=== PATIENT | male | born 1980 | race Hispanic/Latino ===

== ENCOUNTER 2023-10-07 05:14 | Inpatient (IN) | payer BC ==
[2023-10-07] MEDS ORDERED: cefTRIAXone (ROCEPHIN) 2 GM VIAL ONE (06:40)
[2023-10-07] MEDS ORDERED: Ketorolac Tromethamine 30 MG (1 mL) VIAL ONE (06:40)
[2023-10-07 07:16] LABS: Hematocrit 45.8 % (38.8-50.0); Hemoglobin 16.4 g/dL (13.5-17.5); Mean Corpuscular HGB CONC 35.8 g/dL (32.0-36.0); Mean Corpuscular Hemoglobin 31.4 pg (27.0-33.0); Mean Corpuscular Volume 87.7 fL (81.2-95.1); Mean Platelet Volume 9.7 fL (7.4-10.4); Platelet Count 184 10x3/uL (150-450); RBC Distribution Width 12.1 % (11.5-14.5); Red Blood Cell (RBC) Count 5.22 10x6/uL (4.32-5.72); White Blood Cell (WBC) Count 11.3 10x3/uL (3.5-10.5)
[2023-10-07 07:26] LABS: ALT (SGPT) 68 U/L (8-55); AST (SGOT) 51 U/L (5-34); Albumin 4.2 g/dL (3.5-5.0); Alkaline Phosphatase 77 U/L (40-110); Anion Gap 17 mmol/L (10-20); BUN (Urea Nitrogen) 14 mg/dL (8.9-20.6); Bilirubin, Total 1.4 mg/dL (0.2-1.2); Calc. Creatinine Clearance 0 mL/min (70-130); Calcium 9.8 mg/dL (7.8-10.44); Carbon Dioxide 20 mmol/L (22-29); Chloride 104 mmol/L (98-107); Estimated GFR 87; Globulin 2.3 g/dL (2.4-3.5); Glucose 107 mg/dL (70-105); Potassium 3.5 mmol/L (3.5-5.1); Protein, Total 6.5 g/dL (6.0-8.3); Sodium 137 mmol/L (136-145)
[2023-10-07 07:27] LABS: MDiff Complete? YES
[2023-10-07 07:56] LABS: Platelet Adequacy Comment Appears Adequate; RBC Morph Comment Within Normal Limits
[2023-10-07 07:59] LABS: Band 14 % (5-11); Eosinophils 1 % (0-10); Lymphocytes 3 % (21-51); Monocytes 3 % (0-10); Neutrophil 79 % (42-75)
[2023-10-07 09:02] LABS: Hematocrit 41.1 % (38.8-50.0); Hemoglobin 14.7 g/dL (13.5-17.5); Mean Corpuscular HGB CONC 35.8 g/dL (32.0-36.0); Mean Corpuscular Hemoglobin 31.5 pg (27.0-33.0); Mean Corpuscular Volume 88.2 fL (81.2-95.1); Mean Platelet Volume 9.9 fL (7.4-10.4); Platelet Count 165 10x3/uL (150-450); RBC Distribution Width 12.1 % (11.5-14.5); Red Blood Cell (RBC) Count 4.66 10x6/uL (4.32-5.72)
[2023-10-07 09:03] LABS: MDiff Complete? YES
[2023-10-07 09:27] LABS: Band 19 % (5-11); Lymphocytes 4 % (21-51); Monocytes 8 % (0-10); Neutrophil 68 % (42-75); Reactive Lymphocytes 1 % (0-10)
[2023-10-07 09:28] LABS: Platelet Adequacy Comment Appears Adequate; RBC Morph Comment Within Normal Limits
[2023-10-07] MEDS ORDERED: Calcium Carbonate 500 MG ChewTAB PO PRN (10:20)
[2023-10-07] MEDS: Clindamycin/D5W 900 MG in Premix 1 BAG IVPB SCH ×2 (10:30→15:08)
[2023-10-07 10:33] VITALS: BMI 26.6
[2023-10-07] MEDS: HYDROcodone/Acetaminophen 5/325 mg Tablet PO PRN (10:58)
[2023-10-07] MEDS: Enoxaparin 40 MG (0.4 mL) SYRINGE SC SCH (10:59)
[2023-10-07] MEDS: Sodium Chloride 0.9% 1,000 ML IV SCH (11:00)
[2023-10-07] MEDS: VANCOMYCIN 2 GRAM/400 ML BAG 2 GM in Premix 1 BAG IVPB SCH (11:00)
[2023-10-07] MEDS: Acetaminophen 325 MG TAB PO PRN (17:22)
[2023-10-07] MEDS: Cefepime 2 GM in Sodium Chloride 0.9% 100 ML IVPB SCH (20:37)
[2023-10-07] MEDS ORDERED: Vancomycin 1 GM in Sodium Chloride 0.9% 250 ML 300 ML IVPB SCH (21:00)
[2023-10-07] MEDS: VANCOMYCIN 1.25 GM/250 ML BAG 1.25 GM in Premix 1 BAG IVPB SCH (21:36)
[2023-10-07] MEDS: Ondansetron PF 4 MG/2 ML Vial IVP PRN (23:23)
[2023-10-08 04:00] LABS: ALT (SGPT) 96 U/L (8-55); AST (SGOT) 58 U/L (5-34); Albumin 2.9 g/dL (3.5-5.0); Alkaline Phosphatase 65 U/L (40-110); Anion Gap 11 mmol/L (10-20); BUN (Urea Nitrogen) 13 mg/dL (8.9-20.6); Bilirubin, Total 1.7 mg/dL (0.2-1.2); Calc. Creatinine Clearance 112 mL/min (70-130); Calcium 8.7 mg/dL (7.8-10.44); Carbon Dioxide 20 mmol/L (22-29); Chloride 106 mmol/L (98-107); Estimated GFR 98; Globulin 2.3 g/dL (2.4-3.5); Glucose 127 mg/dL (70-105); Hematocrit 40.4 % (38.8-50.0); Hemoglobin 14.3 g/dL (13.5-17.5); MDiff Complete? YES; Mean Corpuscular HGB CONC 35.4 g/dL (32.0-36.0); Mean Corpuscular Volume 87.4 fL (81.2-95.1); Mean Platelet Volume 9.9 fL (7.4-10.4); Platelet Count 156 10x3/uL (150-450); Potassium 3.6 mmol/L (3.5-5.1); Protein, Total 5.2 g/dL (6.0-8.3); RBC Distribution Width 12.4 % (11.5-14.5); Red Blood Cell (RBC) Count 4.62 10x6/uL (4.32-5.72); Sodium 133 mmol/L (136-145); White Blood Cell (WBC) Count 8.4 10x3/uL (3.5-10.5)
[2023-10-08 04:04] LABS: Band 13 % (5-11); Dohle Bodies SLIGHT; Lymphocytes 4 % (21-51); Metamyelocyte 1 % (0-0); Monocytes 1 % (0-10); Neutrophil 81 % (42-75)
[2023-10-08 04:05] LABS: Vacuoles SLIGHT
[2023-10-08 04:07] LABS: RBC Morph Comment Within Normal Limits
[2023-10-08 04:08] LABS: Vancomycin, Random 18.2 ug/mL (See Comment)
[2023-10-08] MEDS: Enoxaparin 40 MG (0.4 mL) SYRINGE SC SCH (08:45)
[2023-10-08] MEDS: Finasteride 5 MG TAB PO SCH (08:48)
[2023-10-09 03:53] LABS: Hemoglobin 14.1 g/dL (13.5-17.5); Mean Corpuscular HGB CONC 35.3 g/dL (32.0-36.0); Mean Corpuscular Hemoglobin 31.2 pg (27.0-33.0); Mean Corpuscular Volume 88.5 fL (81.2-95.1); Mean Platelet Volume 9.9 fL (7.4-10.4); Platelet Count 164 10x3/uL (150-450); RBC Distribution Width 12.6 % (11.5-14.5); Red Blood Cell (RBC) Count 4.52 10x6/uL (4.32-5.72)
[2023-10-09 04:06] LABS: ALT (SGPT) 88 U/L (8-55); AST (SGOT) 37 U/L (5-34); Albumin 2.5 g/dL (3.5-5.0); Alkaline Phosphatase 74 U/L (40-110); Anion Gap 13 mmol/L (10-20); BUN (Urea Nitrogen) 13 mg/dL (8.9-20.6); Bilirubin, Total 1.2 mg/dL (0.2-1.2); Calc. Creatinine Clearance 119 mL/min (70-130); Calcium 9.4 mg/dL (7.8-10.44); Carbon Dioxide 21 mmol/L (22-29); Cardiac Risk 7.1 (Less than 4.5); Chloride 105 mmol/L (98-107); Cholesterol 127 mg/dl (< 200 Desired); Estimated GFR 105; Globulin 2.8 g/dL (2.4-3.5); Glucose 115 mg/dL (70-105); HDL Cholesterol 18 mg/dL (>60 Neg Risk); LDL Cholesterol, Calculated 56 mg/dL; Potassium 3.8 mmol/L (3.5-5.1); Protein, Total 5.3 g/dL (6.0-8.3); Sodium 135 mmol/L (136-145); Triglycerides 263 mg/dL (Less than 150)
[2023-10-09 04:09] LABS: MDiff Complete? YES
[2023-10-09 04:12] LABS: Band 1 % (5-11); Eosinophils 1 % (0-10); Lymphocytes 1 % (21-51); Monocytes 4 % (0-10); Neutrophil 93 % (42-75)
[2023-10-09 04:14] LABS: Dohle Bodies SLIGHT; Giant Platelets SLIGHT HPF (0-5); Platelet Adequacy Comment Appears Adequate; Toxic Granulation SLIGHT
[2023-10-09 04:16] LABS: RBC Morph Comment Within Normal Limits
[2023-10-09 10:38] LABS: Bilirubin Neg (Negative); Blood, Urine 25 (Negative); Clarity Clear (Clear); Glucose, Urine (Dipstick) 50 mg/dL (Negative); Ketone, Urine 5 mg/dL (Negative); Leukocyte Negative (Negative); Nitrite Negative (Negative); Protein, Urine (Dipstick) 100 mg/dl (Neg-Trace); Urobilinogen Normal mg/dL (Less than 2)
[2023-10-09 10:56] LABS: Bacteria/HPF None Seen HPF (None Seen); RBC/HPF 0-3 HPF (0-3); Squamous Epithelial 0-3 HPF (0-3); WBC/HPF 0-3 HPF (0-3)
[2023-10-09] MEDS: Ondansetron ODT 4 MG TAB PO PRN (11:06)
[2023-10-09] MEDS: Ketorolac Tromethamine 30 MG (1 mL) VIAL IVP PRN (12:31)
[2023-10-09] MEDS: Sodium Chloride 0.9% 1,000 ML IV SCH (15:56)
[2023-10-09] MEDS: VANCOMYCIN 1.25 GM/250 ML BAG 1.25 GM in Premix 1 BAG IVPB SCH (16:01)
[2023-10-09] MEDS: Famotidine 20 MG TAB PO SCH (19:48)
[2023-10-09] MEDS: CEFAZOLIN 2 GM in Sodium Chloride 0.9% 100 ML IVPB SCH (21:09)
[2023-10-09] MEDS ORDERED: VANCOMYCIN 1.25 GM/250 ML BAG 1.25 GM in Premix 1 BAG IVPB SCH (23:59)
[2023-10-10 03:59] LABS: ALT (SGPT) 79 U/L (8-55); AST (SGOT) 30 U/L (5-34); Albumin 2.2 g/dL (3.5-5.0); Alkaline Phosphatase 108 U/L (40-110); Anion Gap 12 mmol/L (10-20); BUN (Urea Nitrogen) 20 mg/dL (8.9-20.6); Bilirubin, Total 1.2 mg/dL (0.2-1.2); Calc. Creatinine Clearance 129 mL/min (70-130); Calcium 9.2 mg/dL (7.8-10.44); Carbon Dioxide 22 mmol/L (22-29); Chloride 103 mmol/L (98-107); Estimated GFR 111; Globulin 3.1 g/dL (2.4-3.5); Glucose 111 mg/dL (70-105); Potassium 3.5 mmol/L (3.5-5.1); Protein, Total 5.3 g/dL (6.0-8.3); Sodium 133 mmol/L (136-145)
[2023-10-10 04:03] LABS: Hematocrit 38.5 % (38.8-50.0); Hemoglobin 13.4 g/dL (13.5-17.5); MDiff Complete? YES; Mean Corpuscular HGB CONC 34.8 g/dL (32.0-36.0); Mean Corpuscular Hemoglobin 30.6 pg (27.0-33.0); Mean Corpuscular Volume 87.9 fL (81.2-95.1); Mean Platelet Volume 10.4 fL (7.4-10.4); Platelet Count 187 10x3/uL (150-450); RBC Distribution Width 12.7 % (11.5-14.5); Red Blood Cell (RBC) Count 4.38 10x6/uL (4.32-5.72); White Blood Cell (WBC) Count 12.9 10x3/uL (3.5-10.5)
[2023-10-10 04:22] LABS: Platelet Adequacy Comment Appears Adequate; RBC Morph Comment Within Normal Limits
[2023-10-10 04:25] LABS: Band 12 % (5-11); Eosinophils 1 % (0-10); Lymphocytes 6 % (21-51); Monocytes 7 % (0-10); Neutrophil 74 % (42-75)
[2023-10-10] MEDS: Saccharomyces boulardii 250 MG CAP PO SCH (08:51)
[2023-10-11 03:51] LABS: Hematocrit 37.2 % (38.8-50.0); Hemoglobin 13.2 g/dL (13.5-17.5); MDiff Complete? YES; Mean Corpuscular HGB CONC 35.5 g/dL (32.0-36.0); Mean Corpuscular Hemoglobin 31.4 pg (27.0-33.0); Mean Corpuscular Volume 88.4 fL (81.2-95.1); Mean Platelet Volume 10.3 fL (7.4-10.4); Platelet Count 208 10x3/uL (150-450); RBC Distribution Width 12.9 % (11.5-14.5); Red Blood Cell (RBC) Count 4.21 10x6/uL (4.32-5.72); White Blood Cell (WBC) Count 10.5 10x3/uL (3.5-10.5)
[2023-10-11 04:08] LABS: ALT (SGPT) 68 U/L (8-55); AST (SGOT) 41 U/L (5-34); Alkaline Phosphatase 143 U/L (40-110); Anion Gap 12 mmol/L (10-20); BUN (Urea Nitrogen) 16 mg/dL (8.9-20.6); Bilirubin, Total 0.9 mg/dL (0.2-1.2); Calc. Creatinine Clearance 139 mL/min (70-130); Calcium 8.7 mg/dL (7.8-10.44); Carbon Dioxide 24 mmol/L (22-29); Chloride 104 mmol/L (98-107); Estimated GFR 113; Globulin 2.9 g/dL (2.4-3.5); Glucose 95 mg/dL (70-105); Potassium 3.3 mmol/L (3.5-5.1); Protein, Total 4.9 g/dL (6.0-8.3); Sodium 137 mmol/L (136-145)
[2023-10-11 04:09] LABS: Band 14 % (5-11); Eosinophils 2 % (0-10); Lymphocytes 17 % (21-51); Monocytes 9 % (0-10); Neutrophil 58 % (42-75)
[2023-10-11 04:10] LABS: Platelet Adequacy Comment Appears Adequate; RBC Morph Comment Within Normal Limits
[2023-10-11] MEDS ORDERED: Acetaminophen 325 MG TAB PO PRN (08:31)
[2023-10-11] MEDS: Albumin 25% 25 GM (100 mL) BOT IVPB SCH (11:19)
[2023-10-11] MEDS: Morphine 2 MG/ML VIAL SLOW IVP PRN (14:05)
[2023-10-12 05:00] LABS: Hematocrit 33.5 % (38.8-50.0); Hemoglobin 11.7 g/dL (13.5-17.5); Mean Corpuscular HGB CONC 34.9 g/dL (32.0-36.0); Mean Corpuscular Hemoglobin 30.6 pg (27.0-33.0); Mean Corpuscular Volume 87.7 fL (81.2-95.1); Mean Platelet Volume 9.5 fL (7.4-10.4); Platelet Count 225 10x3/uL (150-450); RBC Distribution Width 13.4 % (11.5-14.5); Red Blood Cell (RBC) Count 3.82 10x6/uL (4.32-5.72); White Blood Cell (WBC) Count 9.5 10x3/uL (3.5-10.5)
[2023-10-12 05:01] LABS: MDiff Complete? YES
[2023-10-12 05:10] LABS: Platelet Adequacy Comment Appears Adequate; RBC Morph Comment Within Normal Limits
[2023-10-12 05:13] LABS: ALT (SGPT) 71 U/L (8-55); AST (SGOT) 59 U/L (5-34); Albumin 2.9 g/dL (3.5-5.0); Alkaline Phosphatase 201 U/L (40-110); Anion Gap 12 mmol/L (10-20); BUN (Urea Nitrogen) 12 mg/dL (8.9-20.6); Bilirubin, Total 1.2 mg/dL (0.2-1.2); Calc. Creatinine Clearance 142 mL/min (70-130); Calcium 9.1 mg/dL (7.8-10.44); Carbon Dioxide 25 mmol/L (22-29); Chloride 103 mmol/L (98-107); Estimated GFR 114; Globulin 2.4 g/dL (2.4-3.5); Glucose 93 mg/dL (70-105); Potassium 3.2 mmol/L (3.5-5.1); Protein, Total 5.3 g/dL (6.0-8.3); Sodium 137 mmol/L (136-145)
[2023-10-12 05:18] LABS: Band 14 % (5-11); Eosinophils 2 % (0-10); Lymphocytes 21 % (21-51); Monocytes 6 % (0-10); Neutrophil 55 % (42-75); Reactive Lymphocytes 2 % (0-10)
[2023-10-12] MEDS: Potassium Chloride 20 MEQ TAB PO SCH (09:21)
[2023-10-12 11:17] LABS: Phosphorus 2.9 mg/dL (2.3-4.7)
[2023-10-13 04:32] LABS: Hematocrit 34.2 % (38.8-50.0); Mean Corpuscular HGB CONC 35.1 g/dL (32.0-36.0); Mean Corpuscular Hemoglobin 30.9 pg (27.0-33.0); Mean Corpuscular Volume 88.1 fL (81.2-95.1); Mean Platelet Volume 9.6 fL (7.4-10.4); Platelet Count 235 10x3/uL (150-450); RBC Distribution Width 13.4 % (11.5-14.5); Red Blood Cell (RBC) Count 3.88 10x6/uL (4.32-5.72); White Blood Cell (WBC) Count 9.1 10x3/uL (3.5-10.5)
[2023-10-13 04:33] LABS: MDiff Complete? YES
[2023-10-13 04:35] LABS: ALT (SGPT) 117 U/L (8-55); AST (SGOT) 96 U/L (5-34); Albumin 2.7 g/dL (3.5-5.0); Alkaline Phosphatase 292 U/L (40-110); Anion Gap 11 mmol/L (10-20); BUN (Urea Nitrogen) 9 mg/dL (8.9-20.6); Bilirubin, Total 1.2 mg/dL (0.2-1.2); Calc. Creatinine Clearance 146 mL/min (70-130); Carbon Dioxide 27 mmol/L (22-29); Chloride 104 mmol/L (98-107); Estimated GFR 115; Globulin 2.7 g/dL (2.4-3.5); Glucose 98 mg/dL (70-105); Potassium 3.3 mmol/L (3.5-5.1); Protein, Total 5.4 g/dL (6.0-8.3); Sodium 139 mmol/L (136-145)
[2023-10-13 04:44] LABS: Platelet Adequacy Comment Appears Adequate; RBC Morph Comment Within Normal Limits
[2023-10-13 04:48] LABS: Band 15 % (5-11); Eosinophils 3 % (0-10); Lymphocytes 21 % (21-51); Monocytes 7 % (0-10); Neutrophil 54 % (42-75)
[2023-10-13] MEDS: Potassium Chloride 20 MEQ TAB PO SCH (08:34)
[2023-10-13] MEDS: Senokot S 8.6-50 MG TAB PO PRN (14:43)
[2023-10-14 03:47] LABS: MDiff Complete? YES
[2023-10-14 03:48] LABS: Hematocrit 35.1 % (38.8-50.0); Mean Corpuscular HGB CONC 34.2 g/dL (32.0-36.0); Mean Corpuscular Hemoglobin 30.5 pg (27.0-33.0); Mean Corpuscular Volume 89.1 fL (81.2-95.1); Mean Platelet Volume 9.6 fL (7.4-10.4); Platelet Count 274 10x3/uL (150-450); RBC Distribution Width 13.4 % (11.5-14.5); Red Blood Cell (RBC) Count 3.94 10x6/uL (4.32-5.72); White Blood Cell (WBC) Count 8.4 10x3/uL (3.5-10.5)
[2023-10-14 03:51] LABS: ALT (SGPT) 139 U/L (8-55); AST (SGOT) 125 U/L (5-34); Albumin 2.5 g/dL (3.5-5.0); Alkaline Phosphatase 367 U/L (40-110); Anion Gap 11 mmol/L (10-20); BUN (Urea Nitrogen) 13 mg/dL (8.9-20.6); Bilirubin, Total 0.9 mg/dL (0.2-1.2); Calc. Creatinine Clearance 144 mL/min (70-130); Calcium 8.9 mg/dL (7.8-10.44); Carbon Dioxide 27 mmol/L (22-29); Chloride 104 mmol/L (98-107); Estimated GFR 115; Globulin 2.9 g/dL (2.4-3.5); Glucose 98 mg/dL (70-105); Potassium 3.5 mmol/L (3.5-5.1); Protein, Total 5.4 g/dL (6.0-8.3); Sodium 138 mmol/L (136-145)
[2023-10-14 05:44] LABS: Band 8 % (5-11); Eosinophils 4 % (0-10); Lymphocytes 15 % (21-51); Metamyelocyte 3 % (0-0); Monocytes 2 % (0-10); Neutrophil 68 % (42-75)
[2023-10-14 05:46] LABS: Hypochromia SLIGHT = 6-15 cells (100X) (0-5/hpf); Microcytosis SLIGHT = 6-15 cells (100X) (0-5/hpf); Platelet Adequacy Comment Appears Adequate
[2023-10-14] MEDS: Albumin 25% 25 GM (100 mL) BOT IVPB SCH (09:31)
[2023-10-14] MEDS: Penicillin G Potassium 4 MILL.UNITS, Admixture Fee 1 EACH in Sodium Chloride 0.9% 100 ML IVPB SCH (19:43)
[2023-10-14] MEDS: Terbinafine 1% Cream 15 GM Tube TOP SCH (23:03)
[2023-10-15 03:51] LABS: Hematocrit 35.7 % (38.8-50.0); Hemoglobin 12.1 g/dL (13.5-17.5); MDiff Complete? YES; Mean Corpuscular HGB CONC 33.9 g/dL (32.0-36.0); Mean Corpuscular Hemoglobin 30.5 pg (27.0-33.0); Mean Corpuscular Volume 89.9 fL (81.2-95.1); Mean Platelet Volume 9.7 fL (7.4-10.4); Platelet Count 294 10x3/uL (150-450); RBC Distribution Width 13.4 % (11.5-14.5); Red Blood Cell (RBC) Count 3.97 10x6/uL (4.32-5.72); White Blood Cell (WBC) Count 9.5 10x3/uL (3.5-10.5)
[2023-10-15 04:09] LABS: ALT (SGPT) 93 U/L (8-55); AST (SGOT) 64 U/L (5-34); Albumin 3.3 g/dL (3.5-5.0); Alkaline Phosphatase 327 U/L (40-110); Anion Gap 11 mmol/L (10-20); BUN (Urea Nitrogen) 14 mg/dL (8.9-20.6); Bilirubin, Total 1.1 mg/dL (0.2-1.2); Calc. Creatinine Clearance 132 mL/min (70-130); Calcium 9.4 mg/dL (7.8-10.44); Carbon Dioxide 26 mmol/L (22-29); Chloride 104 mmol/L (98-107); Estimated GFR 112; Globulin 2.7 g/dL (2.4-3.5); Glucose 90 mg/dL (70-105); Potassium 3.7 mmol/L (3.5-5.1); Sodium 137 mmol/L (136-145)
[2023-10-15 04:32] LABS: HIV (1/2) Antibody/Antigen Non-Reactive (NonReactive); HIV 1/2 INDEX 0.05 S/CO (<1.00)
[2023-10-15 05:27] LABS: Band 4 % (5-11); Lymphocytes 11 % (21-51); Metamyelocyte 2 % (0-0); Microcytosis SLIGHT = 6-15 cells (100X) (0-5/hpf); Monocytes 2 % (0-10); Neutrophil 79 % (42-75); Platelet Adequacy Comment Appears Adequate; Reactive Lymphocytes 2 % (0-10)
[2023-10-15] MEDS: Furosemide 20 MG (2 mL) VIAL SLOW IVP SCH (06:13)
[2023-10-15 08:19] VITALS: BMI 26.6
[2023-10-15] MEDS ORDERED: Albumin 25% 25 GM (100 mL) BOT IVPB SCH (09:00)
[2023-10-15 13:17] LABS: CRP,High Sensitivity (Inhouse) 4.32 mg/dL (< or = 0.5)
[2023-10-16 04:13] LABS: Anion Gap 13 mmol/L (10-20); BUN (Urea Nitrogen) 13 mg/dL (8.9-20.6); Calc. Creatinine Clearance 137 mL/min (70-130); Calcium 9.9 mg/dL (7.8-10.44); Carbon Dioxide 25 mmol/L (22-29); Chloride 103 mmol/L (98-107); Estimated GFR 113; Glucose 101 mg/dL (70-105); Sodium 137 mmol/L (136-145)
[2023-10-16 09:55] LABS: PTT 27.2 sec (22.0-33.0)
[2023-10-16 10:24] LABS: ALT (SGPT) 72 U/L (8-55); AST (SGOT) 36 U/L (5-34); Albumin 3.7 g/dL (3.5-5.0); Alkaline Phosphatase 330 U/L (40-110); Bilirubin, Direct 0.4 mg/dL (0.1-0.3); Bilirubin, Total 0.9 mg/dL (0.2-1.2); Protein, Total 6.9 g/dL (6.0-8.3)
[2023-10-16] MEDS: Doxycycline 100 MG in Sodium Chloride 0.9% 100 ML IVPB SCH (12:03)
[2023-10-16] MEDS ORDERED: Lidocaine 1% PF 10 ML AMP FS SCH (13:30)
[2023-10-16 13:44] LABS: Hep C IgG Ab NONREACTIVE S/CO (NonReactive); Hep C Index 0.12 S/CO (0-0.79)
[2023-10-16 14:52] LABS: Bilirubin Neg (Negative); Blood, Urine Negative (Negative); Clarity Clear (Clear); Glucose, Urine (Dipstick) Normal (Negative); Ketone, Urine Negative (Negative); Leukocyte Negative (Negative); Nitrite Negative (Negative); Protein, Urine (Dipstick) Negative (Neg-Trace)
[2023-10-16 15:25] LABS: Bacteria/HPF None Seen HPF (None Seen); RBC/HPF None Seen HPF (0-3); Squamous Epithelial None Seen HPF (0-3); WBC/HPF None Seen HPF (0-3)
[2023-10-16] MEDS ORDERED: Doxycycline 100 MG in Sodium Chloride 0.9% 100 ML IVPB SCH (21:00)
[2023-10-17 05:08] LABS: #Basophils 0.08 10x3/uL (0.0-0.2); #Eosinphils 0.13 10x3/uL (0.0-0.5); #Monocytes 0.66 10x3/uL (0.0-1.1); #Neutrophils 8.02 10x3/uL (1.5-8.4); %Basophils 0.7 % (0.0-2.0); %Eosinophils 1.2 % (0.0-6.0); %Lymphocytes 15.6 % (18.0-47.0); %Neutrophils 72.8 % (40.0-75.0); Hematocrit 39.9 % (38.8-50.0); Hemoglobin 13.7 g/dL (13.5-17.5); Mean Corpuscular HGB CONC 34.3 g/dL (32.0-36.0); Mean Corpuscular Hemoglobin 30.5 pg (27.0-33.0); Mean Corpuscular Volume 88.9 fL (81.2-95.1); Mean Platelet Volume 9.5 fL (7.4-10.4); Platelet Count 397 10x3/uL (150-450); RBC Distribution Width 12.9 % (11.5-14.5); Red Blood Cell (RBC) Count 4.49 10x6/uL (4.32-5.72)
[2023-10-17 05:17] LABS: ALT (SGPT) 72 U/L (8-55); AST (SGOT) 36 U/L (5-34); Albumin 3.7 g/dL (3.5-5.0); Alkaline Phosphatase 333 U/L (40-110); Anion Gap 13 mmol/L (10-20); BUN (Urea Nitrogen) 15 mg/dL (8.9-20.6); Calc. Creatinine Clearance 128 mL/min (70-130); Calcium 10.4 mg/dL (7.8-10.44); Carbon Dioxide 24 mmol/L (22-29); Chloride 102 mmol/L (98-107); Estimated GFR 110; Globulin 3.7 g/dL (2.4-3.5); Glucose 99 mg/dL (70-105); Potassium 4.3 mmol/L (3.5-5.1); Protein, Total 7.4 g/dL (6.0-8.3); Sodium 135 mmol/L (136-145)
[2023-10-17 05:18] LABS: EBV VCA IgM <36.0 U/mL (0.0-35.9)
[2023-10-17 08:16] LABS: Hep B Surface AG-Rflx Sendout Negative (Negative); Hepatitis B Core Total Negative (Negative); Hepatitis B Surface AB-Sendout Non Reactive (.)
[2023-10-17] MEDS: HYDROcodone/Acetaminophen 5/325 mg Tablet PO PRN (14:27)
[2023-10-17] MEDS: Polyethylene Glycol 3350 17 GM Packet PO SCH (17:29)
[2023-10-18 04:16] LABS: #Basophils 0.05 10x3/uL (0.0-0.2); #Eosinphils 0.11 10x3/uL (0.0-0.5); #Monocytes 0.78 10x3/uL (0.0-1.1); #Neutrophils 8.98 10x3/uL (1.5-8.4); %Basophils 0.4 % (0.0-2.0); %Eosinophils 0.9 % (0.0-6.0); %Lymphocytes 13.1 % (18.0-47.0); %Monocytes 6.7 % (0.0-10.0); %Neutrophils 76.7 % (40.0-75.0); Hematocrit 40.6 % (38.8-50.0); Hemoglobin 13.9 g/dL (13.5-17.5); Mean Corpuscular HGB CONC 34.2 g/dL (32.0-36.0); Mean Corpuscular Hemoglobin 30.6 pg (27.0-33.0); Mean Corpuscular Volume 89.4 fL (81.2-95.1); Mean Platelet Volume 9.5 fL (7.4-10.4); Platelet Count 469 10x3/uL (150-450); RBC Distribution Width 12.8 % (11.5-14.5); Red Blood Cell (RBC) Count 4.54 10x6/uL (4.32-5.72); White Blood Cell (WBC) Count 11.7 10x3/uL (3.5-10.5)
[2023-10-18 04:35] LABS: ALT (SGPT) 58 U/L (8-55); AST (SGOT) 28 U/L (5-34); Albumin 3.8 g/dL (3.5-5.0); Alkaline Phosphatase 324 U/L (40-110); Anion Gap 15 mmol/L (10-20); BUN (Urea Nitrogen) 18 mg/dL (8.9-20.6); Bilirubin, Total 1.1 mg/dL (0.2-1.2); Calc. Creatinine Clearance 121 mL/min (70-130); Calcium 10.5 mg/dL (7.8-10.44); Carbon Dioxide 23 mmol/L (22-29); Chloride 101 mmol/L (98-107); Estimated GFR 107; Globulin 3.8 g/dL (2.4-3.5); Glucose 102 mg/dL (70-105); Potassium 4.5 mmol/L (3.5-5.1); Protein, Total 7.6 g/dL (6.0-8.3); Sodium 134 mmol/L (136-145)
[2023-10-18 07:59] VITALS: BP 134/83; TEMP 98.2
[2023-10-18] MEDS: Ibuprofen 600 MG TAB PO PRN (09:11)
[2023-10-18] MEDS: Polyethylene Glycol 3350 17 GM Packet PO SCH (09:18)
[2023-10-18] MEDS: Morphine 2 MG/ML VIAL SLOW IVP SCH (11:13)
[2023-10-18 12:48] LABS: ANA Symphony (Qualitative) Negative (Negative); ANA Symphony (Quantitative) 0.2 Ratio (< 0.7 Negative); EliA Vaculitis New Method **** NEW METHOD ****; dsDNA IgG Antibody 3.2 IU/mL (<10 Negative)
== END 2023-10-18 14:02 | disposition home or self-care (01) | DRG 872 ==
LOC: CSHERS 05:14 → CSHTELE 10:23 → INTOOBSV 10:23 → OBSVTOIN 10-08 10:11 → CSHTELE 10-16 09:07
PROVIDERS: ADMIT Internal Medicine; ATTEND Family Medicine
PROC: 0HBKXZX Excision of Right Lower Leg Skin, External Approach, Diagnostic (ICD-10-PCS; principal; 2023-10-11)
DX: A41.9 Sepsis, unspecified organism (principal); L03.115 Cellulitis of right lower limb; E78.5 Hyperlipidemia, unspecified; E88.09 Other disorders of plasma-protein metabolism, not elsewhere classified; R10.9 Unspecified abdominal pain; B95.4 Other streptococcus as the cause of diseases classified elsewhere; T36.1X5A Adverse effect of cephalosporins and other beta-lactam antibiotics, initial encounter; K76.0 Fatty (change of) liver, not elsewhere classified; Z79.1 Long term (current) use of non-steroidal anti-inflammatories (NSAID); Z79.899 Other long term (current) drug therapy; Z90.49 Acquired absence of other specified parts of digestive tract
CPT/HCPCS: 36415; 76705; 80048; 80053; 80061; 80076; 80202; 81001; 81003; 81015; 82550; 83516; 83605; 83735; 84100; 85025; 85610; 85730; 86015; 86038; 86140; 86141; 86225; 86664; 86665; 86704; 86706; 86803; 87040; 87070; 87205; 87340; 87389; 88305; 93005; 93010; 94760; 96361; 96365; 96366; 96368; 96375; J0692; J0696; J1650; J1885; J1940; J2272; J2405; J2540; J3370; J3490; J7050; P9047; Q0162

== ENCOUNTER 2023-10-23 20:24 | Emergency (ER) | payer BC | END 2023-10-23 22:22 | disposition home or self-care (01) | LOC: CSHERS 20:24 | DX: Z48.00 Encounter for change or removal of nonsurgical wound dressing (principal); L03.115 Cellulitis of right lower limb | CPT/HCPCS: 99283 ==

== ENCOUNTER 2023-10-30 10:46 | Emergency (ER) | payer BC ==
[2023-10-30] MEDS ORDERED: Bacitracin 1 PK ONE (13:21)
== END 2023-10-30 13:18 | disposition home or self-care (01) ==
LOC: CSHERS 10:46
DX: S81.811D Laceration without foreign body, right lower leg, subsequent encounter (principal); R60.9 Edema, unspecified; X58.XXXD Exposure to other specified factors, subsequent encounter